=== PATIENT | female | born 1985 | race Caucasian/White ===

== ENCOUNTER 2020-11-28 12:14 | Inpatient (IN) | payer BC ==
[2020-11-28 12:44] LABS: Fetal Membranes Rupture RUPTURE DETECTED (No Rupture)
[2020-11-28 12:52] VITALS: BMI 27.3
[2020-11-28] MEDS ORDERED: Butorphanol Tartrate 1 MG/ML VIAL SLOW IVP PRN (13:19)
[2020-11-28] MEDS ORDERED: Promethazine HCl 25 MG/ML VIAL IM PRN (13:19)
[2020-11-28] MEDS ORDERED: Docusate 100 MG CAP PO PRN (13:19)
[2020-11-28] MEDS ORDERED: Ondansetron PF 4 MG/2 ML Vial IVP PRN (13:19)
[2020-11-28] MEDS ORDERED: hydrALAZINE 20 MG/ML VIAL SLOW IVP PRN (13:19)
[2020-11-28] MEDS ORDERED: Betamet Acet/Betamet Na Ph 30 MG/5 ML VIAL ONE (13:20)
[2020-11-28] MEDS ORDERED: Magnesium Sulfate 20 gm/500 ml 20 GM/500 ML BAG ONE (13:20)
[2020-11-28] MEDS ORDERED: Magnesium Sulfate 20 gm/500 ml 20 GM/500 ML BAG IVPB SCH (13:30)
[2020-11-28] MEDS: Lactated Ringer's 1,000 ML IV SCH (13:30)
[2020-11-28 13:36] LABS: Hemoglobin 10.1 g/dL (12.0-15.5); Mean Corpuscular HGB CONC 33.3 g/dL (32.0-36.0); Mean Corpuscular Hemoglobin 28.5 pg (27.0-33.0); Mean Corpuscular Volume 85.4 fl (81.6-98.3); Mean Platelet Volume 11.9 fl (7.4-10.4); Platelet Count 227 10x3/uL (150-450); RBC Distribution Width 13.3 % (11.5-14.5); Red Blood Cell (RBC) Count 3.55 10x6/uL (3.90-5.03); White Blood Cell (WBC) Count 11.9 10x3/uL (3.5-10.5)
[2020-11-28] MEDS: Clindamycin/D5W 900 MG in Premix Bag 1 BAG IVPB SCH ×2 (13:45→22:14)
[2020-11-28] MEDS ORDERED: Clindamycin (PEDI) 900 MG in Syringe 0 ML IVPB SCH (14:00)
[2020-11-28 14:09] LABS: Hep B Surf Ag Non-Reactive S/CO (NonReactive)
[2020-11-28] MEDS: Betamet Acet/Betamet Na Ph 30 MG/5 ML VIAL IM SCH (14:09)
[2020-11-28 14:10] LABS: Syphilis Antibody Nonreactive (Nonreactive); Syphilis Antibody Index 0.03 S/CO (<1.00 Non-Reactive)
[2020-11-28 14:21] LABS: HBSAg Index 0.19 S/CO (0-0.99)
[2020-11-28] MEDS: CEFAZOLIN 2 GM in Premix Bag 1 BAG IVPB SCH ×2 (14:30→23:12)
[2020-11-28 16:19] LABS: HIV (1/2) Antibody/Antigen Non-Reactive (NonReactive); HIV 1/2 INDEX 0.15 S/CO (<1.00)
[2020-11-28 17:12] LABS: SARS-CoV-2 NAA Rapid Test Not Detected (NotDetected)
[2020-11-28] MEDS ORDERED: Acetaminophen 325 MG TAB PO PRN (23:23)
[2020-11-29] MEDS: Clindamycin/D5W 900 MG in Premix Bag 1 BAG IVPB SCH (05:21)
[2020-11-29] MEDS: CEFAZOLIN 2 GM in Premix Bag 1 BAG IVPB SCH (06:06)
[2020-11-29] MEDS: Lactated Ringer's 1,000 ML IV SCH ×3 (07:43→14:19)
[2020-11-29] MEDS: Betamet Acet/Betamet Na Ph 30 MG/5 ML VIAL IM SCH ×3 (07:44→14:19)
[2020-11-29] MEDS ORDERED: Calcium Carbonate 500 MG ChewTAB PO PRN (10:30)
[2020-11-29] MEDS ORDERED: Zolpidem Tartrate 5 MG TAB PO PRN (10:31)
[2020-11-29] MEDS: Azithromycin 250 MG TAB PO SCH (13:25)
[2020-11-29] MEDS: Ampicillin 2 GM in Sodium Chloride 0.9% 100 ML IVPB SCH ×2 (14:08→20:00)
[2020-11-29 16:55] LABS: SARS-CoV-2 PCR by NAA Not Detected (NotDetected)
[2020-11-30] MEDS: Ampicillin 2 GM in Sodium Chloride 0.9% 100 ML IVPB SCH ×3 (02:13→14:38)
[2020-11-30] MEDS: Lactated Ringer's 1,000 ML IV SCH (02:15)
[2020-11-30] MEDS ORDERED: Azithromycin 250 MG TAB PO SCH (09:00)
[2020-11-30] MEDS: Azithromycin 250 MG TAB PO SCH (12:39)
[2020-11-30] MEDS: AMOXicillin 250 MG CAP PO SCH ×2 (13:40→22:10)
[2020-11-30] MEDS ORDERED: AMOXicillin 500 MG CAP PO SCH (14:00)
[2020-12-01] MEDS: Prenatal Vitamin 1 TAB PO SCH ×2 (09:33→19:22)
[2020-12-01] MEDS: Azithromycin 250 MG TAB PO SCH (12:57)
[2020-12-01] MEDS: Lactated Ringer's 1,000 ML IV SCH ×7 (13:55→23:25)
[2020-12-01] MEDS: AMOXicillin 250 MG CAP PO SCH ×3 (15:19→22:20)
[2020-12-02] MEDS: Lactated Ringer's 1,000 ML IV SCH ×2 (05:39→15:16)
[2020-12-02] MEDS: AMOXicillin 250 MG CAP PO SCH ×3 (05:44→21:46)
[2020-12-02] MEDS: Prenatal Vitamin 1 TAB PO SCH (08:45)
[2020-12-02] MEDS: Azithromycin 250 MG TAB PO SCH (12:24)
[2020-12-03] MEDS: AMOXicillin 250 MG CAP PO SCH ×3 (05:34→21:19)
[2020-12-03] MEDS: Prenatal Vitamin 1 TAB PO SCH (09:57)
[2020-12-04] MEDS: Lactated Ringer's 1,000 ML IV SCH ×3 (00:19→00:20)
[2020-12-04] MEDS: AMOXicillin 250 MG CAP PO SCH ×3 (04:59→21:27)
[2020-12-04] MEDS: Prenatal Vitamin 1 TAB PO SCH (09:59)
[2020-12-05] MEDS: Lactated Ringer's 1,000 ML IV SCH ×7 (04:57→18:16)
[2020-12-05] MEDS: AMOXicillin 250 MG CAP PO SCH ×3 (05:25→22:00)
[2020-12-05] MEDS: Prenatal Vitamin 1 TAB PO SCH (08:58)
[2020-12-06] MEDS: Lactated Ringer's 1,000 ML IV SCH ×3 (07:41→12:04)
[2020-12-06] MEDS: AMOXicillin 250 MG CAP PO SCH ×3 (08:20→20:44)
[2020-12-06] MEDS: Prenatal Vitamin 1 TAB PO SCH (08:20)
[2020-12-06 22:38] LABS: SARS-CoV-2 PCR by NAA Not Detected (NotDetected)
[2020-12-07] MEDS: AMOXicillin 250 MG CAP PO SCH ×3 (07:31→21:26)
[2020-12-07] MEDS: Lactated Ringer's 1,000 ML IV SCH ×6 (07:45→21:46)
[2020-12-07] MEDS: Prenatal Vitamin 1 TAB PO SCH (10:03)
[2020-12-07] MEDS ORDERED: hydrALAZINE 20 MG/ML VIAL SLOW IVP PRN (18:54)
[2020-12-07] MEDS ORDERED: NS w/ Oxytocin 30 units 500 ML IV SCH ×2 (18:54)
[2020-12-07] MEDS ORDERED: Lidocaine 1% (PF) 30 ML VIAL SC PRN (18:54)
[2020-12-07] MEDS ORDERED: HYDROcodone/Acetaminophen 5/325 mg Tablet PO PRN ×2 (18:54)
[2020-12-07] MEDS ORDERED: Butorphanol Tartrate 1 MG/ML VIAL SLOW IVP PRN (18:54)
[2020-12-07] MEDS ORDERED: Ibuprofen 800 MG TAB PO PRN (18:54)
[2020-12-07] MEDS ORDERED: Ondansetron PF 4 MG/2 ML Vial IVP PRN (18:54)
[2020-12-07] MEDS ORDERED: Promethazine HCl 25 MG/ML VIAL IM PRN (18:54)
[2020-12-07] MEDS ORDERED: Zolpidem Tartrate 5 MG TAB PO PRN (19:46)
[2020-12-07] MEDS ORDERED: Penicillin G Potassium 5 MILL.UNITS in Sodium Chloride 0.9% 100 ML IVPB SCH (20:00)
[2020-12-07] MEDS: Penicillin G 2.5 MILL.units 2.5 MILL.UNITS in Premix Bag 1 BAG IVPB SCH ×2 (21:44→21:45)
[2020-12-08] MEDS: Penicillin G 2.5 MILL.units 2.5 MILL.UNITS in Premix Bag 1 BAG IVPB SCH ×4 (03:44→11:16)
[2020-12-08] MEDS: Lactated Ringer's 1,000 ML IV SCH ×2 (03:44→11:15)
[2020-12-08 05:59] LABS: Mean Corpuscular HGB CONC 33.6 g/dL (32.0-36.0); Mean Corpuscular Hemoglobin 28.7 pg (27.0-33.0); Mean Corpuscular Volume 85.6 fl (81.6-98.3); Mean Platelet Volume 11.3 fl (7.4-10.4); Platelet Count 259 10x3/uL (150-450); RBC Distribution Width 14.7 % (11.5-14.5); Red Blood Cell (RBC) Count 3.48 10x6/uL (3.90-5.03); White Blood Cell (WBC) Count 11.7 10x3/uL (3.5-10.5)
[2020-12-08] MEDS: AMOXicillin 250 MG CAP PO SCH (07:51)
[2020-12-09] MEDS: Penicillin G 2.5 MILL.units 2.5 MILL.UNITS in Premix Bag 1 BAG IVPB SCH ×4 (05:21→17:07)
[2020-12-09] MEDS: Lactated Ringer's 1,000 ML IV SCH ×2 (05:22→08:40)
[2020-12-09] MEDS ORDERED: Penicillin G Potassium 5 MILL.UNITS VIAL ONE (08:14)
[2020-12-09] MEDS ORDERED: Misoprostol 200 MCG TAB ONE (19:41)
[2020-12-09] MEDS ORDERED: Methylergonovine 0.2 MG/ML VIAL ONE (19:42)
[2020-12-09] MEDS ORDERED: Carboprost 250 MCG/ML AMP ONE (19:42)
[2020-12-09] MEDS ORDERED: Succinylcholine 200 MG/10 ml SYRINGE FS ONE (19:42)
[2020-12-09] MEDS ORDERED: PROPOFOL 20 ML ONE (19:42)
[2020-12-10] MEDS ORDERED: Preparation H Ointment 28 GM TUBE PR PRN (01:20)
[2020-12-10] MEDS ORDERED: Boostrix 0.5 ML (Tdap) VIAL IM ONE (01:20)
[2020-12-10] MEDS ORDERED: NS w/ Oxytocin 30 units 500 ML IV SCH (01:20)
[2020-12-10] MEDS ORDERED: Bisacodyl 10 MG SUPP PR PRN (01:20)
[2020-12-10] MEDS ORDERED: Lanolin Ointment 7 GM TUBE TOP PRN (01:20)
[2020-12-10] MEDS ORDERED: Milk Of Magnesia 30 ML UDCUP PO PRN (01:20)
[2020-12-10] MEDS ORDERED: hydrALAZINE 20 MG/ML VIAL SLOW IVP PRN (01:20)
[2020-12-10] MEDS ORDERED: HYDROcodone/Acetaminophen 5/325 mg Tablet PO PRN ×2 (01:20)
[2020-12-10] MEDS ORDERED: Promethazine HCl 25 MG/ML VIAL IM PRN (01:20)
[2020-12-10] MEDS ORDERED: Benzocaine-Menthol 82.5 ML CAN TOP PRN (01:20)
[2020-12-10] MEDS ORDERED: diphenhydrAMINE 25 MG CAP PO PRN (01:20)
[2020-12-10] MEDS ORDERED: Ondansetron PF 4 MG/2 ML Vial IVP PRN (01:20)
[2020-12-10] MEDS: Penicillin G 2.5 MILL.units 2.5 MILL.UNITS in Premix Bag 1 BAG IVPB SCH (01:23)
[2020-12-10] MEDS: Lactated Ringer's 1,000 ML IV SCH (01:23)
[2020-12-10] MEDS: Ibuprofen 800 MG TAB PO SCH ×4 (03:32→17:20)
[2020-12-10 05:22] LABS: #Monocytes 1.4 10x3/uL (0.0-1.1); #Neutrophils 14.4 10x3/uL (1.5-8.4); %Basophils 0.2 % (0.0-2.0); %Eosinophils 0.1 % (0.0-6.0); %Lymphocytes 15.4 % (18.0-47.0); %Monocytes 7.6 % (0.0-10.0); %Neutrophils 76.2 % (40.0-75.0); Hemoglobin 9.1 g/dL (12.0-15.5); Mean Corpuscular HGB CONC 32.3 g/dL (32.0-36.0); Mean Corpuscular Hemoglobin 28.2 pg (27.0-33.0); Mean Corpuscular Volume 87.3 fl (81.6-98.3); Mean Platelet Volume 11.6 fl (7.4-10.4); Platelet Count 203 10x3/uL (150-450); RBC Distribution Width 14.6 % (11.5-14.5); Red Blood Cell (RBC) Count 3.23 10x6/uL (3.90-5.03); White Blood Cell (WBC) Count 18.9 10x3/uL (3.5-10.5)
[2020-12-10] MEDS ORDERED: Prenatal Vitamin 1 TAB PO SCH (09:00)
[2020-12-10] MEDS ORDERED: Docusate Calcium (SURFAK) 240 MG CAP PO SCH (09:00)
[2020-12-10] MEDS: Ferrous Sulfate 325 MG TAB PO SCH ×2 (10:40→17:41)
[2020-12-10 20:32] VITALS: BP 128/78; TEMP 98.7
== END 2020-12-10 21:00 | disposition home or self-care (01) | DRG 805 ==
LOC: CSHLD/OP 12:14 → CSHLD 15:08 → CSHANTE 12-01 13:43 → CSHLD 12-09 08:22 → CSHPP 12-10 01:18
PROVIDERS: ADMIT Obstetrics & Gynecology; ATTEND Obstetrics & Gynecology
PROC: 10E0XZZ Delivery of Products of Conception, External Approach (ICD-10-PCS; principal; 2020-12-09)
DX: O42.913 Preterm premature rupture of membranes, unspecified as to length of time between rupture and onset of labor, third trimester (principal); O60.13X0 Preterm labor second trimester with preterm delivery third trimester, not applicable or unspecified; Z37.2 Twins, both liveborn; Z20.822 Contact with and (suspected) exposure to COVID-19; Z3A.32 32 weeks gestation of pregnancy; F41.9 Anxiety disorder, unspecified; F32.A Depression, unspecified; O99.344 Other mental disorders complicating childbirth; O24.429 Gestational diabetes mellitus in childbirth, unspecified control; O30.043 Twin pregnancy, dichorionic/diamniotic, third trimester
CPT/HCPCS: 36415; 36416; 51701; 51702; 76815; 76819; 84112; 85025; 85027; 86780; 86850; 86900; 86901; 87340; 87389; 88307; 99285; J0290; J0690; J0702; J2540; J2550; J2590; J2704; J3475; J3490; J7120; U0002; U0003; U0005